=== PATIENT | male | born 1975 | race Caucasian/White ===

== ENCOUNTER 2018-12-08 23:40 | Emergency (ER) | payer OTHER ==
[~2018-12-08] VITALS: Ht 167.6 cm; Wt 68.2 kg
[2018-12-08 23:51] VITALS: BP 160/103; PULSE 104; RESP 19; Ht 167.6 cm; Wt 68.2 kg
[2018-12-09] MEDS ORDERED: LIDOCAINE 1% (MDV) 20 ML INJ SC ONE (05:00)
[2018-12-09] MEDS ORDERED: DIPHTH/TET/ACEL PERTUSS (ADULT) 0.5 ML VIAL IM* ONE (06:00)
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
== END 2018-12-09 09:07 | disposition home or self-care (01) ==
LOC: EDBD 23:40 → MERGE 23:40 → FTE 23:40
DX: S09.90XA Unspecified injury of head, initial encounter (principal); S01.01XA Laceration without foreign body of scalp, initial encounter; S52.612A Displaced fracture of left ulna styloid process, initial encounter for closed fracture; F17.210 Nicotine dependence, cigarettes, uncomplicated; Y00.XXXA Assault by blunt object, initial encounter; Z23 Encounter for immunization
CPT/HCPCS: 12002; 29125; 70450; 73090; 73110; 73130; 90715; Z7610; 90471